=== PATIENT | female | born 1990 | race Caucasian/White ===

== ENCOUNTER 2023-04-13 20:09 | Outpatient (CLI) | payer OTHER ==
[~2023-04-13] VITALS: Ht 167.6 cm; Wt 70.5 kg
[~2023-04-13 20:09] MED LIST: ALDACTONE50 MG PO; CEPHALEXIN250 MG/5 M PO; CITRANATAL DHA1 KIT PO; CLARITIN; GLUCOPHAGE500 MG/TAB PO; IBU600 MG PO; LORTAB ELIX0.5 MG/ML PO; MOTRIN 200200 MG/TAB PO; NECON 0.5/35 351 TA1 PO; NO HOME MEDICATIONS; ZYRTEC 10MG10 MG PO
[2023-04-13 20:20] VITALS: BP 125/72; PULSE 82; TEMP 97.7
--- NOTE | 2023-04-13 20:20 | NUR ---
2020 G5L3 37.3 WEEK GEST TO LR3 WITH C/O HEADACHE AND ELEVATED B/P'S AT HOME AND WANTING LAB WORK DONE FOR PREECLAMPSIA. PT STATES SEE A DIRECTOR OF PRODUCT DEVELOPMENT BASHIR VALDEZ IN [place], DOES NOT SEE A PHYSICIAN FOR THIS PREGNACY. HAS A HEADACHE TONIGHT AND HAD ELEVATED B/P'S OF 140'S/90'S WITH HER MACHINE AT HOME. HAD PREECLAMPSIA WITH [facility] , SO DIRECTOR OF PRODUCT DEVELOPMENT TOLD HER TO COME TO HOSPITAL FOR LAB WORK. STATES HAS NO OTHER COMPLAINTS EXCEPT SHE FEELS "BLAH". HAS NOT TRIED TYLENOL FOR HEADACHE. EFM ON. FHT'S 125. CONTRACTION NOTED BUT NOT HURTING PER MOM. INITIAL B/P 125/72
[2023-04-13 20:30] VITALS: BP 117/66; PULSE 78
[2023-04-13] MEDS ORDERED: PRENATAL TABLET PO (20:31)
[2023-04-13] MEDS ORDERED: ASPIRIN 81M81 MG/TA2 PO (20:31)
[2023-04-13 20:40] VITALS: BP 123/70; PULSE 80
[2023-04-13 20:45] VITALS: BP 124/67; PULSE 82
--- NOTE | 2023-04-13 20:45 | NUR ---
2044 STATES HEADACHE CONTINUES. ASSESS DONE PER PATIENT. 2049 DR BHAT NOTIFIED AND REPORT GIVEN. ORDERS TO DISCHARGE. TO HOME. DISMISSAL INSTRUCTIONS GIVEN WITH NO QUESTIONS AT THIS TIME 2109 DISMISSED TO HOME.
== END 2023-04-13 21:10 | disposition home or self-care (01) ==
LOC: LDRO 20:09
DX: O16.3 Unspecified maternal hypertension, third trimester (principal); R51.9 Headache, unspecified; Z3A.37 37 weeks gestation of pregnancy